=== PATIENT | male | born 1935 | race Caucasian/White ===

== ENCOUNTER 2017-11-04 11:38 | Inpatient (IN) | payer MEDICARE, OTHER ==
[2017-11-04] MEDS ORDERED: Ketorolac INJ* 30 MG/ML 1 ML VIAL IV ONE (12:28)
[2017-11-04] MEDS ORDERED: NS 0.9% 1000 ML* 1,000 ML IV ONE ×2 (12:28→18:02)
[2017-11-04 12:55] LABS: ABS Basophils 0.1 10^3/ul (0-0.2); ABS Eosinophils 0 10^3/ul (0-0.6); ABS Lymphocytes 0.8 10^3/ul (1.0-4.8); ABS Monocytes 0.6 10^3/ul (0-0.8); ABS Neutrophils 9.9 10^3/ul (1.5-7.7); ABS Nucleated RBC 0 10^3/ul; Eosinophil % 0.3 % (0-6); Hematocrit 41 % (42-52); Hemoglobin 13.6 g/dl (14.0-18.0); Lymphocyte % 7.3 % (25-47); Mean Corpuscular HGB Conc 34 g/dl (31-36); Mean Corpuscular Hemoglobin 31 pg (27-31); Mean Corpuscular Volume 93 fL (80-94); Mean Platelet Volume 8 um3 (7.4-10.4); Nucleated Red Blood Cells % 0; Platelet Count 223 10^3/ul (150-450); Red Blood Count 4.39 10^6/ul (4.0-5.4); Red Cell Distribution Width 13 % (10.5-15); White Blood Count 11.4 10^3/ul (3.5-10.8)
[2017-11-04 13:12] LABS: EGFR Non-African American 53.2 (>60)
[2017-11-04 13:24] LABS: Urine Appearance Clear; Urine Blood Negative (Negative); Urine Color Yellow; Urine Ketones Negative (Negative); Urine Protein Negative (Negative); Urine Specific Gravity 1.011 (1.010-1.030); Urine Urobilinogen Negative (Negative)
--- NOTE | 2017-11-04 13:31 | RAD ---
CLINICAL HISTORY: Left flank pain COMPARISON: July 17, 2014 TECHNIQUE: Multiple contiguous axial CT scans were obtained of the abdomen and pelvis, without intravenous contrast enhancement. Coronal and sagittal multiplanar reformations are submitted for review. Oral contrast was not administered. FINDINGS: The study is limited by the lack of intravenous contrast. This limits evaluation of the solid organs and vasculature. LUNG BASES: The lung bases are clear. LIVER: The liver is normal in shape, size, contour, and attenuation. BILE DUCTS: There is no intrahepatic or extrahepatic biliary dilatation. GALLBLADDER: The gallbladder is not visualized. Surgical clips are noted in the gallbladder fossa. PANCREAS: The pancreas is normal, without mass or ductal dilatation. SPLEEN: Normal in size and appearance. UPPER GI TRACT: Evaluation of the gastrointestinal tract is limited by incomplete gastric distention. The upper GI tract is unremarkable. SMALL BOWEL AND MESENTERY: The small bowel is normal in contour, course, and caliber. There is no obstruction or dilatation. COLON: There is extensive diverticulosis of the descending and sigmoid colon. ADRENALS: Normal bilaterally. KIDNEYS: The left kidney is edematous. There is perinephric stranding. There is pelvocaliectasis and hydroureter with a 0.3 cm calculus of the left UVJ. BLADDER: As noted above, there is a 0.3 cm calculus of the left UVJ PELVIC ORGANS: The pelvic organs are not visualized. Surgical clips are noted in the pelvis. AORTA: There is calcific atherosclerotic disease of the abdominal aorta and its branches, without aneurysmal dilatation IVC: Unremarkable LYMPH NODES: There is no lymphadenopathy by size criteria. ABDOMINAL WALL: There is a small fat-containing left inguinal hernia. There is an umbilical hernia containing a loop of small bowel without obstruction. BONES AND SOFT TISSUES: There are mild diffuse degenerative changes. OTHER: None IMPRESSION: 1. 0.3 CM CALCULUS OF THE LEFT UVJ WITH LEFT-SIDED HYDRONEPHROSIS AND PERINEPHRIC STRANDING. 2. DIVERTICULOSIS. 3. ATHEROSCLEROSIS. 4. UMBILICAL HERNIA CONTAINING LOOP OF SMALL BOWEL WITHOUT OBSTRUCTION. FAT-CONTAINING LEFT INGUINAL HERNIA.
[2017-11-04] MEDS ORDERED: Thiamine IV* 100 MG, Folic Acid IV* 1 MG, Multiple Vitamin IV ADULT* 10 ML in NS 0.9% 1... IV ONE (17:11)
[2017-11-04] MEDS ORDERED: cefTRIAXone(*) 2 GM in NS 0.9% 100 ML* 100 ML IVPB ONE (18:02)
[2017-11-04] MEDS ORDERED: Gentamicin ADULT (*) 40 MG/ML VIAL IVPB ONE (18:02)
[2017-11-04] MEDS ORDERED: cefTRIAXone(*) 2 GM ADDV.VIAL IVPB ONE (18:08)
[2017-11-04] MEDS ORDERED: Gentamicin ADULT (*) 160 MG in NS 0.9% 100 ML* 100 ML IVPB ONE (19:00)
[2017-11-04] MEDS ORDERED: Ketorolac INJ* 15 MG/ML 1 ML VIAL IV PUSH PRN (21:08)
[2017-11-04] MEDS ORDERED: Ondansetron INJ* 2 MG/ML VIAL IV PRN (21:14)
[2017-11-04] MEDS ORDERED: Acetaminophen TAB* 325 MG PO PRN (21:15)
--- NOTE | 2017-11-04 21:32 | CONS ---
UROLOGY CONSULTATION REPORT: DATE OF CONSULT: 11/04/17 REQUESTING PHYSICIAN: Dr. Zach Rivera in the emergency room. DIAGNOSES: 1. Left hydronephrosis. 2. Calculus left ureter. HISTORY OF PRESENT ILLNESS: Georges Diaz is an 82-year-old gentleman who was evaluated in the emergency room for a history of left flank pain. He had previously been treated by his primary care doctor for a urinary tract infection caused by Klebsiella and is currently on Bactrim 1 tablet twice a day. In the emergency room he has had fairly severe pain requiring multiple doses of analgesics and because of continued pain, the plan is to admit him to the hospitalist service. PAST MEDICAL HISTORY: Significant for history of thoracic ascending aortic aneurysm and history of cholecystitis in 2013. MEDICATIONS: On admission: 1. Bactrim 1 tablet twice a day. 2. Vitamin B12, 1000 mcg daily. 3. Cholecalciferol 1000 units daily. 4. Vitamin B complex 1 capsule daily. 5. Percocet 1 tablet every 6 hours p.r.n. as needed. 6. Zofran 4 mg q.6 hours p.r.n. ALLERGIES: CIPRO and SSRI's. PHYSICAL EXAM: On examination, he is a pleasant elderly gentleman. Vital Signs : Blood pressure is 149/71, pulse rate of 75 per minute, oxygen saturation 96%. Cardiovascular Exam: Regular rate and rhythm. S1 and S2. Lungs are clear bilaterally. Abdomen is soft with left flank tenderness. DIAGNOSTIC STUDIES/LAB DATA: Review of labs revealed a white count of 11.4, hemoglobin and hematocrit 13.6 and 41 with a platelet count of 223,000. Sodium is 134, potassium 4.0, BUN and creatinine are 16 and 1.29 with glucose of 111. Lactic acid is 1.4 and serum calcium is 8.7. I reviewed the CT scan done several hours ago which revealed a 3-mm calculus at the left ureterovesical junction with left hydronephrosis in addition to some other unrelated findings. The urinalysis today reveals a pH of 7.0 and is essentially unremarkable, but that is probably because he is on antibiotics currently. IMPRESSION: I had a detailed discussion with Mr. Diaz regarding the management of this small left distal ureteral calculus. The complicating factor is the associated urinary infection and I think the current management should be intravenous antibiotics, intravenous fluids, analgesics as needed, and to strain his urine. If he is unable to pass the calculus and is still requiring significant doses of analgesics in the next 24 to 48 hours, then the next step would be to consider left ureteroscopy and removal of the calculus and left stent insertion. [id number]/[facility]PS #: [id number] MTDD
[2017-11-04] MEDS ORDERED: Econazole 1% CREAM (NF) 1 TUBE TOPICAL SCH (22:00)
--- NOTE | 2017-11-04 22:49 | HP ---
ADMISSION HISTORY AND PHYSICAL: DATE OF ADMISSION: 11/04/17 UROLOGIST: Dr. Parrish. ADMITTING PHYSICIAN: Gilma Perales MD * (DICTATED BY PRIYANKA ALNDIS NP ) CHIEF COMPLAINT: Flank pain and hematuria. HISTORY OF PRESENT ILLNESS: This is a very pleasant 82-year-old gentleman who presented to the emergency department with a complaint of flank pain and repetitive nausea and vomiting at home. He said it began at approximately 9:30 this morning. Hematuria has been persistent for the past week. He said the pain was on the left in his low back and radiated around to the groin. The patient states that he has had kidney stones in the past and this felt very similar. He also had prostatectomy in the past. The patient had been placed on Bactrim by his urologist on the for Klebsiella UTI; however, this pain to him felt more than a urinary tract infection and came to the emergency department for evaluation. CAT scan was performed of the abdomen and pelvis showing a 0.3 cm calculus at the left UVJ with left-sided hydronephrosis and some perinephric stranding, diverticulosis, some atherosclerosis, and umbilical hernia containing a loop of small bowel without obstruction and a fat- containing left inguinal hernia. The patient was given aggressive fluid hydration, Zofran, and Toradol for pain and was initially going to be discharged to home; however, the patient began having intermittent colicky pain and was concerned, but with an obstructing stone he would not be able to make it through the night. Dr. Parrish was consulted who recommended the patient be kept inpatient and given more aggressive IV hydration and pain medication as needed and if the stone is still present in the morning, he would undergo cystoscopy. 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 PAST SURGICAL HISTORY: Left shoulder surgery and cataract surgery. MEDICATIONS: At home include: 1. Econazole 1% cream. 2. Bactrim 1 tab p.o. daily. 3. Vitamin B12, 1000 mcg daily. 4. Vitamin D 1000 units daily. 5. Zofran tabs 4 mg q.6 hours as needed. 6. Percocet 5/325, 1 tablet every 6 hours as needed. ALLERGIES: The patient has no known drug allergies. FAMILY HISTORY: Noncontributory. SOCIAL HISTORY: Drinks red wine a glass daily. Never smoked and never engaged in illicit drug use. REVIEW OF SYSTEMS: A 10-point review of systems is negative except as noted in the HPI. PHYSICAL EXAMINATION GENERAL: The patient is awake and alert, well nourished appearing, no acute distress. Currently, in no pain. VITAL SIGNS: Presently, blood pressure 141/63; heart rate 77; respiratory rate 14; O2 saturation 92% on room air. HEENT: The patient is atraumatic, normocephalic. PERRLA with nonicteric sclerae. Oral mucosa is moist. He has poor dentition. Front teeth are missing. NECK: Supple, nontender. No JVD noted. No carotid bruits auscultated. LUNGS: Clear bilaterally to auscultation with no wheezing, rhonchi, or rales. CARDIOVASCULAR: S1, S2 are present. No murmurs, gallops, or rubs. Rate and rhythm are regular. ABDOMEN: Soft. Some pinpoint tenderness around the mid umbilicus and just below; however, it is not radiating and not diffuse in nature. He has positive bowel sounds in all 4 quadrants. : The patient had reportedly had some hematuria. I did not witness this myself. MUSCULOSKELETAL: There is no clubbing, no cyanosis. He has trace left ankle edema which is his baseline per the patient's report. He has +2 distal pulses palpable and he is ambulatory. NEUROLOGIC: Grossly intact with no focal deficits. PSYCHIATRIC: He is cooperative and very appropriate. LABORATORY DATA: WBCs 11.4, RBCs 4.39, hemoglobin 13.6, hematocrit 46, platelets 223,000. Sodium 134, potassium 4.0, chloride 103, CO2 of 26, BUN 16, creatinine 1.29. Glucose 111, calcium 8.7. Liver function is normal. CRP is 1.78. Lipase is 26. Urinalysis is yellow, clear, pH 7.0, specific gravity 1.000. Negative for protein, ketones, blood, nitrites, bilirubin, urobilinogen , or leukocyte esterase. Negative for glucose. IMAGING: As stated above shows a 0.3 cm renal calculus. IMPRESSION: This is an 82-year-old gentleman with a kidney stone that has been difficult to pass with ongoing pain and may be going for cystoscopy with Dr. Parrish in the morning. PLAN: The patient has been admitted to medical service. He is being given IV fluid hydration, 2 L of fluid. He will be continued on maintenance IV normal saline, Zofran as needed, Toradol q.6 hours as needed for pain. He will be continued on his home regimen. He is being given ceftriaxone and gentamicin in the ER. We will continue him on ceftriaxone for the Klebsiella that was growing out on his culture from the . If there are any changes in susceptibility, antibiotics will be adjusted; however, it does appear that this bacteria is susceptible to ceftriaxone. He will be continued on that q.24 hours and we look to Dr. Parrish for any additional input on this patient's case. He is a full code. He lives at home with his , who is his healthcare proxy. She is in [place] at this time. He does have good friends at the bedside who are also aware of his situation and acting on his behalf. In the event of any serious issues, they will be able to contact his . The rest of the patient's course will be determined by further diagnostics, laboratories and any other input from other providers as warranted during this admission. MK LANDIS NP [id number]/[facility] #: [id number] ALEX
[2017-11-05] MEDS: Clotrimazole 1% CREAM* 30 GM TOPICAL SCH ×2 (03:07→08:51)
[2017-11-05] MEDS: NS 0.9% 1000 ML* 1,000 ML IV SCH ×2 (06:31→14:51)
[2017-11-05] MEDS ORDERED: Cholecalciferol TAB* 1000 UNITS PO SCH (09:00)
[2017-11-05] MEDS ORDERED: Cyanocobalamin TAB* 500 MCG PO SCH (09:00)
--- NOTE | 2017-11-05 09:56 | RAD ---
INDICATION: Assess left ureteral jet. Left UVJ calculus with hydronephrosis COMPARISON: CT November 04, 2017 TECHNIQUE: Longitudinal and transverse scans bladder were obtained. FINDINGS: Bladder: The bladder is partially distended. There are no intrinsic or extrinsic masses. The prevoid volume is 166 ml and the postvoid volume is 56 ml. The right ureteral jet is documented. There is a 5 mm calculus at the left UVJ. The left ureteral jet is not documented. Other: Prostatectomy IMPRESSION: NONVISUALIZATION OF LEFT URETERAL JET WITH 5 MM CALCULUS AT THE UVJ. MODERATE POSTVOID RESIDUAL
--- NOTE | 2017-11-05 13:32 | ED ---
Adair Beaulieu Jennifer, scribed for Zach Rivera MD on 11/04/17 at 1232 . GI/ HPI - HPI Summary HPI Summary: The patient is an 82 year old male who presents with flank pain on the lower left side that began at 09:30 and hematuria that was began 6 days ago. The patient describes that the pain originated in the left lower back and radiates down to the testicles. He rates the pain a 9-10. The patient adds that he had a prostatectomy and experiences incontinence. He has never had kidney stones before. - History of Current Complaint Chief Complaint: EDFlankPain Time Seen by Provider: 11/04/17 12:17 Stated Complaint: POSSIBLE KIDNEY STONE Hx Obtained From: Patient Onset/Duration: Started Hours Ago - This morning at 09:30 Timing: Constant Severity: Moderate Current Severity: Moderate Pain Intensity: 9 Location of Pain: LLQ, Flank Additional Locations for Males: Testicles Pain Radiates to: Flank Associated Signs and Symptoms: Positive: Hematuria, Flank Pain Aggravating Factor(s): Nothing Alleviating Factor(s): Nothing - Allergy/Home Medications Allergies/Adverse Reactions: Allergies Allergy/AdvReac Type Severity Reaction Status Date / Time ciprofloxacin Allergy Hives Verified 11/05/17 12:37 fluoxetine Allergy See Comment Verified 11/05/17 12:41 SSRIs Allergy See Comment Uncoded 11/04/17 17:42 Home Medications: Home Medications Cholecalciferol [Vitamin D] 1,000 unit PO DAILY 11/04/17 [History Confirmed 10/21] Cyanocobalamin TAB* [Vitamin B12 TAB*] 1,000 mcg PO DAILY 11/04/17 [History Confirmed 11/04/17] Econazole 1% CREAM (NF) [Econazole 1 % CREAM (NF)] 1 applic TOPICAL DAILY [History Confirmed 11/04/17] Sulfamethox/Trimethoprim DS* [Bactrim DS 800/160 TAB*] 1 tab PO BID 11/04/17 [ History Confirmed 11/04/17] Vitamin B Complex CAP* [B Complex CAP*] 1 cap PO DAILY 11/04/17 [History Confirmed 11/04/17] PMH/Surg Hx/FS Hx/Imm Hx Endocrine/Hematology History: Denies: Hx Anemia Respiratory History: Reports: Hx Asthma, Hx Sleep Apnea GI History: Reports: Other GI Disorders - (?) Acalculous Cholecystitis Denies: Hx Jaundice History: Reports: Other Problems/Disorders - Prostate Surgery, urinary incontinence Musculoskeletal History: Reports: Other Musculoskeletal History - Left shoulder repair Sensory History: Reports: Hx Cataracts - Cataract Surgery, Hx Contacts or Glasses, Hx Vision Problem - low intraocular pressure, visual disturbance, Hx Hearing Aid Opthamlomology History: Reports: Hx Cataracts - Cataract Surgery, Hx Contacts or Glasses, Hx Vision Problem - low intraocular pressure, visual disturbance Psychiatric History: Reports: Other Psychiatric Issues/Disorders - ADD - Cancer History Cancer Type, Location and Year: PROSTATE - Surgical History Surgery Procedure, Year, and Place: Prostate, Left Shoulder Repair, Cataract Hx Anesthesia Reactions: No Infectious Disease History: No Infectious Disease History: 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 Skin: The skin is warm and dry and skin color reflects adequate perfusion. HEENT: ~The head is normocephalic and atraumatic. The pupils are equal and reactive. The conjunctivae are clear and without drainage. ~Nares are patent and without drainage. ~Mouth reveals moist mucous membranes and the throat is without erythema and exudate. ~The external ears are intact. The ear canals are patent and without drainage. The tympanic membranes are intact. Neck: the neck is supple with full range of motion and non-tender. There are no carotid bruits. ~There is no neck vein distension. Respiratory: Chest is non-tender. ~Lungs are clear to auscultation and breath sounds are symmetrical and equal. Cardiovascular: Heart is regular rate and rhythm. ~There is no murmur or rub auscultated. ~~There is no peripheral edema and pulses are symmetrical and equal. Abdomen: The abdomen is soft and non-tender. ~There are normal bowel sounds heard in all four quadrants and there is no organomegaly palpated. Musculoskeletal: There is no back tenderness noted. ~Extremities are non-tender with full range of motion. ~There is good capillary refill. ~There is no peripheral edema or calf tenderness elicited. Neurological: Patient is alert and oriented to person, place and time. ~The patient has symmetrical motor strength in all four extremities. ~Cranial nerves are grossly intact. Deep tendon reflexes are symmetrical and equal in all four extremities. Psychiatric: The patient has an appropriate affect and does not exhibit any anxiety or depression. Triage Information Reviewed: Yes Vital Signs On Initial Exam: Initial Vitals Temp Pulse Resp BP Pulse Ox 97.9 F 80 22 163/96 98 11/04/17 11:42 11/04/17 11:42 11/04/17 11:42 11/04/17 11:42 11/04/17 11:42 Vital Signs Reviewed: Yes Diagnostics - Vital Signs Vital Signs Temp Pulse Resp BP Pulse Ox 11/04/17 12:20 75 13 95 11/04/17 11:42 97.9 F 80 22 163/96 98 - Laboratory Lab Results: Lab Results 11/04/17 11/04/17 11/04/17 Range/Units 12:44 12:44 12:44 WBC 11.4 H (3.5-10.8) 10^3/ul RBC 4.39 (4.0-5.4) 10^6/ul Hgb 13.6 L (14.0-18.0) g/dl Hct 41 L (42-52) % MCV 93 (80-94) fL MCH 31 (27-31) pg MCHC 34 (31-36) g/dl RDW 13 (10.5-15) % Plt Count 223 (150-450) 10^3/ul MPV 8 (7.4-10.4) um3 Neut % (Auto) 86.5 H (38-83) % Lymph % (Auto) 7.3 L (25-47) % [place] % (Auto) 5.4 (1-9) % Eos % (Auto) 0.3 (0-6) % Baso % (Auto) 0.5 (0-2) % Absolute Neuts (auto) 9.9 H (1.5-7.7) 10^3/ul Absolute Lymphs (auto) 0.8 L (1.0-4.8) 10^3/ul Absolute Monos (auto) 0.6 (0-0.8) 10^3/ul Absolute Eos (auto) 0 (0-0.6) 10^3/ul Absolute Basos (auto) 0.1 (0-0.2) 10^3/ul Absolute Nucleated RBC 0 10^3/ul Nucleated RBC % 0 Sodium 134 (133-145) mmol/L Potassium 4.0 (3.5-5.0) mmol/L Chloride 103 (101-111) mmol/L Carbon Dioxide 26 (22-32) mmol/L Anion Gap 5 (2-11) mmol/L BUN 16 (6-24) mg/dL Creatinine 1.29 H (0.67-1.17) mg/dL Est GFR ( Amer) 68.4 (>60) Est GFR (Non-Af Amer) 53.2 (>60) BUN/Creatinine Ratio 12.4 (8-20) Glucose 111 H (70-100) mg/dL Lactic Acid 1.4 (0.5-2.0) mmol/L Calcium 8.7 (8.6-10.3) mg/dL Total Bilirubin 0.60 (0.2-1.0) mg/dL AST 20 (13-39) U/L ALT 14 (7-52) U/L Alkaline Phosphatase 78 (34-104) U/L C-Reactive Protein 1.78 (< 5.00) mg/L Total Protein 6.9 (6.4-8.9) g/dL Albumin 3.8 (3.2-5.2) g/dL Globulin 3.1 (2-4) g/dL Albumin/Globulin Ratio 1.2 (1-3) Lipase 26 (11.0-82.0) U/L Urine Color Urine Appearance Urine pH (5-9) Ur Specific [place] (1.010-1.030) Urine Protein (Negative) Urine Ketones (Negative) Urine Blood (Negative) Urine Nitrate (Negative) Urine Bilirubin (Negative) Urine Urobilinogen (Negative) Ur Leukocyte Esterase (Negative) Urine Glucose (Negative) Urine Ascorbic Acid (Negative) 11/04/17 Range/Units 13:09 WBC (3.5-10.8) 10^3/ul RBC (4.0-5.4) 10^6/ul Hgb (14.0-18.0) g/dl Hct (42-52) % MCV (80-94) fL MCH (27-31) pg MCHC (31-36) g/dl RDW (10.5-15) % Plt Count (150-450) 10^3/ul MPV (7.4-10.4) um3 Neut % (Auto) (38-83) % Lymph % (Auto) (25-47) % [place] % (Auto) (1-9) % Eos % (Auto) (0-6) % Baso % (Auto) (0-2) % Absolute Neuts (auto) (1.5-7.7) 10^3/ul Absolute Lymphs (auto) (1.0-4.8) 10^3/ul Absolute Monos (auto) (0-0.8) 10^3/ul Absolute Eos (auto) (0-0.6) 10^3/ul Absolute Basos (auto) (0-0.2) 10^3/ul Absolute Nucleated RBC 10^3/ul Nucleated RBC % Sodium (133-145) mmol/L Potassium (3.5-5.0) mmol/L Chloride (101-111) mmol/L Carbon Dioxide (22-32) mmol/L Anion Gap (2-11) mmol/L BUN (6-24) mg/dL Creatinine (0.67-1.17) mg/dL Est GFR ( Amer) (>60) Est GFR (Non-Af Amer) (>60) BUN/Creatinine Ratio (8-20) Glucose (70-100) mg/dL Lactic Acid (0.5-2.0) mmol/L Calcium (8.6-10.3) mg/dL Total Bilirubin (0.2-1.0) mg/dL AST (13-39) U/L ALT (7-52) U/L Alkaline Phosphatase (34-104) U/L C-Reactive Protein (< 5.00) mg/L Total Protein (6.4-8.9) g/dL Albumin (3.2-5.2) g/dL Globulin (2-4) g/dL Albumin/Globulin Ratio (1-3) Lipase (11.0-82.0) U/L Urine Color Yellow Urine Appearance Clear Urine pH 7.0 (5-9) Ur Specific [place] 1.011 (1.010-1.030) Urine Protein Negative (Negative) Urine Ketones Negative (Negative) Urine Blood Negative (Negative) Urine Nitrate Negative (Negative) Urine Bilirubin Negative (Negative) Urine Urobilinogen Negative (Negative) Ur Leukocyte Esterase Negative (Negative) Urine Glucose Negative (Negative) Urine Ascorbic Acid * H (Negative) Result Diagrams: 11/04/17 12:44 11/04/17 12:44 Lab Statement: Any lab studies that have been ordered have been reviewed, and results considered in the medical decision making process. - CT CT Abd/Pel CT Interpretation: Positive (See Comments) - 1. 0.3 CM CALCULUS OF THE LEFT UVJ WITH LEFT-SIDED HYDRONEPHROSIS AND PERINEPHRIC STRANDING. 2. DIVERTICULOSIS. 3. ATHEROSCLEROSIS. 4. UMBILICAL HERNIA CONTAINING LOOP OF SMALL BOWEL WITHOUT OBSTRUCTION. FAT-CONTAINING LEFT INGUINAL HERNIA. Dr. Rivera has reviewed this report. CT Interpretation Completed By: Radiologist MATT Course/Dx - Course Course Of Treatment: Ignacia Diaz presented with a couple days of left flank pain. He was found to have a 3 mm left UVJ stone with moderate hydronephrosis. He had called his PMD a few days ago and got started on Bactrim for a presumed UTI and his U/A did grow out Kelbsiella. He is not febrile, his labs are WNL and his U/A is negative today. He continued to have significant pain and weakness and ultimately was admitted to the hospitlalist service with Dr Parrish consulting. - Diagnoses Provider Diagnoses: Kidney stones - Physician Notifications Discussed Care Of Patient With: Gilma Perales Time Discussed With Above Provider: 17:48 Instructed by Provider To: Other - Consulted Dr. Perales who accepts the pt for admisison. Discharge - Discharge Plan Condition: Stable Disposition: ADMITTED TO [facility] The documentation as recorded by the Adair su Jennifer accurately reflects the service I personally performed and the decisions made by me, Zach Rivera MD.
[2017-11-05 17:11] VITALS: BP 144/71
[2017-11-05] MEDS ORDERED: cefTRIAXone(*) 1 GM in NS 0.9% 50 ML* 50 ML IVPB SCH (18:00)
--- NOTE | 2017-11-05 18:17 | RAD ---
INDICATION: Reevaluate for left ureteral jet COMPARISON: Same day bladder ultrasound TECHNIQUE: Real time ultrasound images of the urinary bladder were acquired with foster scale and Doppler color flow imaging. FINDINGS: Ureteral jets are identified bilaterally. IMPRESSION: Positive ureteral jets bilaterally.
== END 2017-11-05 19:30 | disposition home or self-care (01) | DRG 694 ==
LOC: ED 11:38 → MED 21:28 → OBSVTOIN 11-05 09:30
PROVIDERS: ADMIT Internal Medicine; ATTEND Internal Medicine
DX: N13.2 Hydronephrosis with renal and ureteral calculous obstruction (principal); N39.0 Urinary tract infection, site not specified; B96.1 Klebsiella pneumoniae [K. pneumoniae] as the cause of diseases classified elsewhere; R31.9 Hematuria, unspecified; N39.498 Other specified urinary incontinence; N48.1 Balanitis; Z79.899 Other long term (current) drug therapy
CPT/HCPCS: 36415; 74176; 76857; 80053; 81003; 83605; 83690; 85025; 86140; 96374; 99284; A9270-GY; J0696; J1580; J1885

== ENCOUNTER 2017-11-09 15:03 | Day surgery (SDC) | payer MEDICARE, OTHER ==
[2017-11-09] MEDS ORDERED: cefTRIAXone(*) 2 GM ADDV.VIAL IVPB ONE (15:28)
[2017-11-09] MEDS ORDERED: Gentamicin ADULT (*) 160 MG in NS 0.9% 100 ML* 100 ML IVPB ONE (16:00)
[2017-11-09] MEDS ORDERED: Iohexol 180 (CONTRAST) 10 ML SDV IV ONE (16:10)
[2017-11-09] MEDS ORDERED: Propofol* 10 MG/ML 20 ML BTL IV PUSH ONE (17:26)
[2017-11-09] MEDS ORDERED: Lidocaine 2% PF * 5 ML VIAL ONE (17:28)
[2017-11-09] MEDS ORDERED: fentaNYL* 50 MCG/ML 2 ML VIAL (100 MCG VIAL) ONE (17:33)
[2017-11-09 19:20] VITALS: BP 140/72
--- NOTE | 2017-11-09 19:25 | RAD ---
INDICATION: Left ureteral calculi COMPARISONS: CT dated November 04, 2018 TECHNIQUE: Fluoroscopy was provided for a retrograde pyelogram and stent placement. Total fluoroscopy time is: 9 seconds FINDINGS: Spot images demonstrate contrast within the renal collecting system. A ureteral stent is noted IMPRESSION: FLUOROSCOPY WAS PROVIDED FOR A RETROGRADE PYELOGRAM AND STENT PLACEMENT CPT II Codes: 6045F
--- NOTE | 2017-11-10 01:33 | OP ---
CC: Bernardo Lemon MD * DATE OF OPERATION: 11/09/17 - SDS DATE OF : 33 SURGEON: Ger Parrish MD ANESTHESIOLOGIST: Dr. Bajwa. ANESTHESIA: General. PRE-OP DIAGNOSES: 1. Calculus left ureter. 2. Left hydronephrosis. POST-OP DIAGNOSES: 1. Calculus left ureter. 2. Left hydronephrosis. OPERATIVE PROCEDURE: Cystoscopy, left retrograde pyelogram, left ureteroscopy and stone extraction, and left stent insertion. COMPLICATIONS: None. STENT USED: A 6-Swedish stent, left ureter. POSTOPERATIVE CONDITION: Stable. OPERATIVE FINDINGS: A 3 to 4 mm calculus obstructing left distal ureter. INDICATIONS: Georges Diaz is an 82-year-old gentleman who had initially been evaluated last week for calculus in the left distal ureter. His symptoms had resolved and a followup ultrasound had revealed evidence that the stone may have passed and he was discharged. He then developed recurrent pain last night and a followup ultrasound in my office earlier today revealed a complete obstruction of the left ureter secondary to the calculus in the left distal ureter. DESCRIPTION OF PROCEDURE: After induction of general anesthesia, the patient was placed in dorsal lithotomy position. Sequential compression devices were in place and functioning. Initial examination revealed a moderate degree of phimosis, the urethra was unremarkable. The patient is status post radical prostatectomy. The bladder was examined. Just inside the bladder neck, there was adhesive band running from one lateral aspect of the bladder neck to the other. This is sometimes seen after radical prostatectomy due to the way the anastomosis was done. The remainder of the bladder was unremarkable. A guidewire was introduced into the left ureter. Retrograde pyelogram revealed fullness of the left collecting system. A 6-Swedish semi-rigid ureteroscope was introduced and advanced under direct vision. In the distal ureter, a 3 to 4 mm calculus was noted with some surrounding edema and inflammation. Using a three- pronged grasper, this was engaged and removed and sent for analysis. No additional stones were noted and a 6-Swedish stent was introduced and positioned under fluoroscopy with good proximal and distal positioning obtained. The bladder was emptied. The patient tolerated the procedure satisfactorily and was transferred back to the recovery area in stable condition. [id number] #: [id number] [facility]
== END 2017-11-09 19:35 | disposition home or self-care (01) ==
LOC: OR 15:03
PROVIDERS: ATTEND Urology
DX: N13.2 Hydronephrosis with renal and ureteral calculous obstruction (principal); R31.9 Hematuria, unspecified; I44.7 Left bundle-branch block, unspecified; J45.909 Unspecified asthma, uncomplicated; G47.33 Obstructive sleep apnea (adult) (pediatric)
CPT/HCPCS: 74420; 82365; 88300; C1876; J0696; J1580; J2704; J3010

== ENCOUNTER 2019-12-13 15:59 | Emergency (ER) | payer MEDICARE, OTHER ==
--- NOTE | 2019-12-13 16:42 | ED ---
Adult Trauma - HPI Summary HPI Summary: The patient is an 84-year-old male arriving via ambulance to [facility] accompanied by with a chief complaint of traumatic fall about an hour ago. He reports that he had turned too fast while ambulating and fell, causing him to land on the right side. He is now experiencing pain in the right hip and thigh. He did not hit his head or neck. He denies any back pain. He was unable to get up without aid. He cannot ambulate on the right lower extremity. Pain is rated 3/10 in severity while at rest. The pain is rated 10/10 in severity with movement. No blood thinners. Past medical history includes cholecystectomy, asthma, sleep apnea, kidney stones, prostate surgery, hepatitis A. Nonsmoker, no alcohol use, no substance use. Medications reviewed. Allergies noted. - History of Current Complaint Chief Complaint: EDFall Stated Complaint: FALL RT HIP PAIN PER EMS Time Seen by Provider: 12/13/19 16:29 Hx Obtained From: Patient Mechanism of Injury: Fall Ambulatory at the Scene: No Loss of Consciousness: no loss of consciousness Onset/Duration: Started Minutes Ago, Still Present Onset of Pain: Immediate Onset Severity: Severe Current Severity: Mild Pain Intensity: 3 Pain Scale Used: 0-10 Numeric Location: Extremities - right hip Aggravating Factor(s): Movement Alleviating Factor(s): Rest - Additional Pertinent History Primary Care Physician: DESTINEY - Allergy/Home Medications Allergies/Adverse Reactions: Allergies Allergy/AdvReac Type Severity Reaction Status Date / Time ciprofloxacin Allergy Hives Verified 12/13/19 16:13 fluoxetine Allergy See Comment Verified 12/13/19 16:13 SSRIs Allergy See Comment Uncoded 11/04/17 17:42 Home Medications: Home Medications NK [No Home Medications Reported] 12/13/19 [History Confirmed 12/13/19] PMH/Surg Hx/FS Hx/Imm Hx Endocrine/Hematology History: Denies: Hx Anemia Cardiovascular History: Denies: Hx Hypercholesterolemia, Hx Hypertension Respiratory History: Reports: Hx Asthma, Hx Sleep Apnea GI History: Reports: Other GI Disorders - (?) Acalculous Cholecystitis Denies: Hx Jaundice History: Reports: Hx Kidney Stones, Other Problems/Disorders - Prostate Surgery, urinary incontinence Musculoskeletal History: Reports: Other Musculoskeletal History - Left shoulder repair Sensory History: Reports: Hx Cataracts - Cataract Surgery, Hx Contacts or Glasses, Hx Vision Problem - low intraocular pressure, visual disturbance, Hx Hearing Aid Opthamlomology History: Reports: Hx Cataracts - Cataract Surgery, Hx Contacts or Glasses, Hx Vision Problem - low intraocular pressure, visual disturbance Psychiatric History: Reports: Other Psychiatric Issues/Disorders - ADD - Cancer History Cancer Type, Location and Year: PROSTATE - Surgical History Surgery Procedure, Year, and Place: Prostate, Left Shoulder Repair, Cataract, cholecystectomy Hx Anesthesia Reactions: No Infectious Disease History: No Infectious Disease History: Reports: Hx Hepatitis - type A 1979 Denies: Traveled Outside the [place] in Last 30 Days - Family History Known Family History: Negative: Diabetes - Social History Alcohol Use: None Alcohol Amount: glass wine daily Hx Substance Use: No Substance Use Type: Reports: None Hx Tobacco Use: No Smoking Status (MU): Never Smoked Tobacco Have You Smoked in the Last Year: No Review of Systems Positive: Arthralgia - right hip, Decreased ROM - right hip secondary to pain. Negative: Other - back pain, neck pain Neurological/Mental Status: Other - Negative: head injury All Other Systems Reviewed And Are Negative: Yes Physical Exam - Summary Physical Exam Summary: VITAL SIGNS: Reviewed. GENERAL: Patient is a well-developed and nourished male who is lying comfortable in the stretcher. Patient is not in any acute respiratory distress. HEAD AND FACE: No signs of trauma. No ecchymosis, hematomas or skull depressions. No sinus tenderness. EYES: PERRLA, EOMI x 2, No injected conjunctiva, no nystagmus. EARS: Hearing grossly intact. Ear canals and tympanic membranes are within normal limits. MOUTH: Oropharynx within normal limits. NECK: Supple, trachea is midline, no adenopathy, no JVD, no carotid bruit, no c- spine tenderness, neck with full ROM. CHEST: Symmetric, no tenderness at palpation. LUNGS: Clear to auscultation bilaterally. No wheezing or crackles. CVS: Regular rate and rhythm, S1 and S2 present, no murmurs or gallops appreciated. ABDOMEN: Soft, non-tender. No signs of distention. No rebound, no guarding, and no masses palpated. Bowel sounds are normal. EXTREMITIES: Right lower extremity is externally rotate and shortened, Decreased ROM secondary to pain. FROM in all other major joints, no edema, no cyanosis or clubbing. NEURO: Alert and oriented x 3. No acute neurological deficits. Speech is normal and follows commands. SKIN: Dry and warm. GCS: 15. Triage Information Reviewed: Yes Vital Signs On Initial Exam: Initial Vitals Temp Pulse Resp BP Pulse Ox 97.4 F 81 20 189/104 97 12/13/19 16:08 12/13/19 16:08 12/13/19 16:08 12/13/19 16:08 12/13/19 16:08 Vital Signs Reviewed: Yes Procedures - Sedation Patient Received Moderate/Deep Sedation with Procedure: No Diagnostics - Vital Signs Vital Signs Temp Pulse Resp BP Pulse Ox 12/13/19 16:08 97.4 F 81 20 189/104 97 - Laboratory Result Diagrams: 12/13/19 21:07 12/13/19 17:03 Lab Statement: Any lab studies that have been ordered have been reviewed, and results considered in the medical decision making process. - Radiology Chest XR Radiology Interpretation Completed By: Radiologist Summary of Radiographic Findings: Impression: No radiographic evidence for acute cardiopulmonary abnormality on this portable chest x-ray. Dr. Rodriguez has reviewed this report. Hip/Pelvis XR Radiology Interpretation Completed By: Radiologist Summary of Radiographic Findings: Impression: Fracture through the right femoral neck with ferrous angulation deformity. Dr. Rodriguez has reviewed this report. - CT Brain CT CT Interpretation Completed By: Radiologist Summary of CT Findings: Impression: 1. No acute intracranial abnormality. Mila Stroke Program Early CT Score (ASPECTS) = 10. 2. Age-related atrophy and mild chronic small vessel ischemic disease. Dr. Rodriguez has reviewed this report. - EKG 2101 Cardiac Rate: NL - 88 BPM EKG Rhythm: Sinus Rhythm EKG Comparison: No Significant Change - Similar to 07/17/2014 Summary of EKG Findings: An EKG at 2101 reveals normal sinus rhythm at rate of 88 BPM, LBBB. No ST elevations. Similar to previous taken on 07/17/2014. Dr. Rodriguez has reviewed and interpreted this EKG. Re-Evaluation - Re-Evaluation First Eval Re-Evaluation Time: 19:20 Comment: We discussed all results and plan for admission. Patient agreeable with plan. Second Eval Re-Evaluation Time: 20:32 Comment: Patient unable to state name and without an issue when nurse administering Tylenol, change from baseline. Patient being evaluated by admitting provider, Geovani Tan, and states sensation of feeling different than he had felt before 20:20. ED provider in room at 2031. NIH at 2035 (see scale). Eder colindres called at 2037. Patient to CT. Geovani will speak with Dr. Dawson to update him on the patient's status. Adult Trauma Course/Dx - Course Assessment/Plan: The patient is an 84-year-old male arriving via ambulance to [facility] accompanied by with a chief complaint of traumatic fall about an hour ago. He reports that he had turned too fast while ambulating and fell, causing him to land on the right side. He is now experiencing pain in the right hip and thigh. He did not hit his head or neck. He denies any back pain. He was unable to get up without aid. He cannot ambulate on the right lower extremity. Pain is rated 3/10 in severity while at rest. The pain is rated 10/10 in severity with movement. No blood thinners. Past medical history includes cholecystectomy, asthma, sleep apnea, kidney stones, prostate surgery, hepatitis A. Nonsmoker, no alcohol use, no substance use. Medications reviewed. Allergies noted. In the ED course the patient was placed on a oracle fusion middleware architect, IV access was obtained. Past medical records reviewed. Blood test w/o a significant abnormality except for glucose of 105. Urinalysis negative for UTI. Hip x ray Impression: Fracture through the right femoral neck with ferrous angulation deformity. CXR Impression: No radiographic evidence for acute cardiopulmonary abnormality on this portable chest x-ray. I discussed the case with Dr. Dawson from orthopedics, and he will consult for this patient. I also discussed the case with Geovani Tan, physician commercial real estate assistant working with Dr. Monreal, from the hospital services, who accepted the patient for admission. Before the patient was transferred to the floor after the patient was admitted by Geovani Tan. the patient requested Tylenol for pain. At 20:20 the nurse was giving him the Tylenol, and she noticed that the patient became slightly confused. She called Geovani Tan, and he noticed that the patient had a dysmetria in the right hand and the partial loss of vision in the right eye. I went to assess the patient, and I confirmed that patient has the above symptoms. The patient himself reports that he noticed abnormal feeling in the right hand and loss of vision in the right eye. Eder colindres was called at that time. The patient went to get a head CT. Head CT shows no acute interval cardiac pathology. I discussed the case with Dr. Jacobs from [facility] and he recommends not TPA since the NIH score is only equal to 2. He recommended for the patient to get an MRI of the brain but noncontrast, CTA of the head and neck, and echocardiogram, aspirin 325 and atorvastatin 40 mg. Patient is getting the MRI and the CTA. The patient is awaiting for results. The patient will be signed out to Dr. Arciniega at shift change. The patient is hemodynamically stable. - Diagnoses Provider Diagnoses: Femoral neck fracture During the Visit The Following Alert/Code Occurred: Eder Trevizo - called at 20:38 - Physician Notifications Discussed Care Of Patient With: Enrico Dawson - orthopedics Time Discussed With Above Provider: 19:10 Instructed by Provider To: Other - I discussed the patients case with Dr. Dawson, who tu consult for the patient. Dr. Monreal from hospitalist services, accepts the patient for admission. I was approached by Geovani Tan [[id number]] who had been assessing the patient for admission secondary to an episode of dysmetria that occurred at 20:20. When Geovani was examining the patient, there was a partial field cut in the right lower quadrant of the right eye. I spoke with Julianna at transfer center at 2055. I spoke with Dr. Jacobs from [facility] [[id number]]. He states that the NIH, which is equal to 2, is too low for TPA. However, he recommends brain MRI, head/neck CTA, and echocardiogram. He wants the patient to follow with Dr. Tobar. He will review the MRI and CTA when resulted. Dr. Dawson has evaluated the patients case and determined that if the patient has to be placed on antiplatelets other than Aspirin, then it would be better for the patient to be transferred for his hip fracture rather than be admitted here for management [2141]. Discharge ED - Sign-Out/Discharge Documenting (check all that apply): Sign-Out Patient Signing out patient TO: Zach Arciniega - Patient is a sign-out to Dr. Zach Arciniega MD, at 2200 on 12/13/2019, pending Brain MRI, Head/Neck CTA, and disposition. - Discharge Plan Condition: Stable Referrals: Bernardo Lemon MD [Primary Care Provider] - - Billing Disposition and Condition Condition: STABLE - Attestation Statements Document Initiated by Betsyibe: Yes Documenting Scribe: Shavonne Case Provider For Whom Areli is Documenting (Include Credential): Dr. Jabier Rodriguez MD Scribe Attestation: IShavonne, scribed for Dr. Jabier Rodriguez MD on 12/13/19 at 2203. Scribe Documentation Reviewed: Yes Provider Attestation: The documentation as recorded by the betsyibe, Shavonne Case accurately reflects the service I personally performed and the decisions made by me, Dr. 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: Partial Hemianopia Facial Paresis-Pt to Smile & Close Eyes or Grimace Symmetry: Normal/Symmetrical Motor Function - Right Arm: No Drift-Holds 10 Seconds Motor Function - Left Arm: No Drift-Holds 10 Seconds Motor Function - Right Leg: No Drift-Holds 10 Seconds Motor Function - Left Leg: No Drift-Holds 10 Seconds Limb Ataxia-Must be out of Proportion to Weakness Present: Present in One Limb Sensory (Use Pinprick to Test Arms/Legs/Trunk/Face): Normal Best Language (Describe Picture, Name Items): No Aphasia Dysarthria (Read Several Words): Normal Extinction and Inattention: No Abnormality Total Score: 2 NIH Stroke Scale Comment: done at 20:36
[2019-12-13 17:24] LABS: ABS Eosinophils 0.1 10^3/ul (0-0.6); ABS Lymphocytes 0.8 10^3/ul (1.0-4.8); ABS Monocytes 0.4 10^3/ul (0-0.8); ABS Neutrophils 9.2 10^3/ul (1.5-7.7); Eosinophil % 0.5 %; Hematocrit 42 % (42-52); Hemoglobin 14.1 g/dL (14.0-18.0); Lymphocyte % 7.6 %; Mean Corpuscular HGB Conc 34 g/dL (31-36); Mean Corpuscular Hemoglobin 32 pg (27-31); Mean Corpuscular Volume 94 fL (80-94); Mean Platelet Volume 8.5 fL (7.4-10.4); Platelet Count 240 10^3/uL (150-450); Red Cell Distribution Width 13 % (10-15); White Blood Count 10.4 10^3/uL (3.5-10.8)
[2019-12-13 17:45] LABS: Albumin 4.1 g/dL (3.2-5.2); Albumin/Globulin Ratio 1.3 (1-3); BUN/Creatinine Ratio 21.5 (8-20); C Reactive Protein 1.93 mg/L (<8.01); Calcium 9.3 mg/dL (8.6-10.3); EGFR African American 112.8 (>60); EGFR Non-African American 93.2 (>60); Globulin 3.2 g/dL (2-4); Potassium 3.6 mmol/L (3.5-5.0); Total Bilirubin 0.7 mg/dL (0.2-1.0); Total Protein 7.3 g/dL (6.4-8.9)
[2019-12-13 18:01] LABS: Urine Appearance Clear; Urine Bacteria Absent (Absent); Urine Bilirubin Negative (Negative); Urine Blood 1+ (Negative); Urine Color Straw; Urine Glucose Negative (Negative); Urine Ketones Negative (Negative); Urine Nitrite Negative (Negative); Urine Protein Negative (Negative); Urine Red Blood Cell Trace(0-2/hpf) (Absent); Urine Squamous Epithelial Cell Present (Absent); Urine Urobilinogen Negative (Negative); Urine White Blood Cell Absent (Absent)
[2019-12-13] MEDS ORDERED: Acetaminophen TAB* 325 MG PO ONE (19:38)
[2019-12-13] MEDS ORDERED: Acetaminophen TAB* 325 MG PO PRN (20:14)
[2019-12-13] MEDS ORDERED: HYDROcodone/ACETAMIN 5-325 MG* 1 TAB PO PRN (20:14)
[2019-12-13] MEDS ORDERED: NS 0.9% 1000 ML** 1,000 ML IV SCH (20:15)
[2019-12-13] MEDS ORDERED: NS 0.9% 1000 ML** 1,000 ML IV ONE (20:45)
[2019-12-13 20:46] LABS: Activated Partial Thrombo Time 31.7 seconds (26.0-38.0); INR 1.14 (0.82-1.09)
[2019-12-13] MEDS ORDERED: Atorvastatin* 40 MG TAB PO ONE (21:15)
[2019-12-13] MEDS ORDERED: Aspirin TAB* 325 MG PO ONE (21:15)
[2019-12-13] MEDS ORDERED: Aspirin 81 mg CHEW TAB* 81 MG TAB.CHEW PO ONE (21:17)
[2019-12-13 21:20] LABS: Mean Platelet Volume 8.4 fL (7.4-10.4); Platelet Count 243 10^3/uL (150-450)
[2019-12-13] MEDS ORDERED: Iohexol 350* (CONTRAST) 500 ML MDV IV ONE (21:23)
[2019-12-13] MEDS ORDERED: Morphine 4 MG/ML VIAL (1 ml) 4 MG/ML VIAL IV ONE (21:28)
[2019-12-13] MEDS ORDERED: Aspirin 81 mg CHEW TAB* 81 MG TAB.CHEW ONE (21:31)
[2019-12-13] MEDS: Ondansetron INJ* 2 MG/ML VIAL IV PRN (21:34)
[2019-12-13 21:35] LABS: HDL Cholesterol 56.2 mg/dL
[2019-12-13 21:37] LABS: Troponin I 0.02 ng/mL (<0.03)
[2019-12-13] MEDS ORDERED: Heparin VIAL(*) 5000 UNITS/ML VIAL (FIVE THOUSAND) SUBCUT SCH (22:00)
--- NOTE | 2019-12-13 22:16 | ED ---
Progress - Progress Note Progress Note: 84 y/o M signed out from Dr. Jabier Rodriguez upon shift change 12/13/2019 2200. Pending Brain MRI, Head/Neck CTA, and disposition. Brain MRI shows, per radiologist: 1. 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 2. Age-related atrophy and mild to moderate chronic small vessel ischemic disease. Head/Neck CTA shows, per radiologist: 1. Normal head CTA. 2. Age-related atrophy and mild chronic small vessel ischemic disease. ED physician has reviewed these imaging reports. Re-Evaluation - Re-Evaluation First Eval Re-Evaluation Time: 22:26 Comment: [facility] radiologist called to report imaging findings Second Eval Re-Evaluation Time: 23:58 Comment: hospitalist and orthopedics recommend transfer to tertiary care center Third Eval Re-Evaluation Time: 00:34 Comment: report given to neurology attending at [facility]. they do not have beds Fourth Eval Re-Evaluation Time: 00:50 Comment: report given to [facility] Charles. they will call back with the hospitalist Fifth Eval Re-Evaluation Time: 01:05 Comment: report given to Dr. Lema, hospitalist at [facility]. they accept the patient. they will call back with bed assignment Course/Dx - Diagnoses Provider Diagnoses: Hip fracture, CVA (cerebral vascular accident) Discharge ED - Sign-Out/Discharge Documenting (check all that apply): Patient Departure - Discharge Plan Condition: Stable Disposition: TRANS HIGHER LVL OF CARE FAC Referrals: Bernardo Lemon MD [Primary Care Provider] - - Billing Disposition and Condition Condition: STABLE Disposition: Trans Higher Lvl of Care Fac - Attestation Statements Document Initiated by Betsyibe: Yes Documenting Scribe: Nikki Cervantes Provider For Whom Areli is Documenting (Include Credential): Zach Arciniega MD Scribe Attestation: Nikki Beaulieu, scribed for Zach Arciniega MD on 12/14/19 at 0209. Scribe Documentation Reviewed: Yes Provider Attestation: The documentation as recorded by the Nikki su accurately reflects the service I personally performed and the decisions made by me, Zach Arciniega MD Status of Scribe Document: Viewed
--- NOTE | 2019-12-13 23:14 | CONS ---
CONSULTATION REPORT: DATE OF CONSULT: 12/13/19 - EMERGENCY DEPT LOCATION: Emergency room at [facility]. 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 He fell and he injured his right hip. There is no direct evidence of any head trauma. He also denies recent similar episodes. He was transferred to the emergency room here at the hospital with complaint of right hip pain and radiographs eventually revealed a displaced femoral neck fracture right side. There is no other evidence of any bony injury to the pelvis or thigh area. He has intact sensation and strength around the foot and toe area of the right side. He is 84 years of age, he has a and a son. He describes some advanced illness in the son, but only the is in reasonable health. He himself is in reasonable health as well. Medications are outlined in the chart. There does not appear to be any pressing or acute cofactor of illness in his present situation. During his stay though in the emergency room, he has developed some focal neurological findings which may indicate some intracranial process, possibly a minor stroke and he is currently being worked up with MRI and CTA of the cerebral vasculature and the carotids. I have interviewed Professor Diaz in the bed. He is an alert and very bright gentleman, appears to be in good shape for an 84-year- old, but his right lower extremity is flexed and externally rotated. He has significant pain at the groin with any range of motion. He is aware of his situation it appears and the need for medical workup, although he does mention to us that he is 84, and that he feels if he were to in the near future that he would accept his fate and we have tried to reassure him that given successful hip surgery, he could return most likely to a reasonable quality of life. So, the main question now is what is going on with his neurological status, this will become hopefully more clear over the next couple of hours. It is my opinion that if he is going to need significant anticoagulation, he best be transferred, as a [place] setting may be able to orchestrate a hemiarthroplasty in the face of aggressive anticoagulation better than we could here at the [facility]. [id number] #: [id number] [facility]
[2019-12-14 02:08] VITALS: BP 127/73
[2019-12-14] MEDS ORDERED: Morphine 4 MG/ML VIAL (1 ml) 4 MG/ML VIAL IV ONE (02:45)
[2019-12-14] MEDS: Ondansetron INJ* 2 MG/ML VIAL IV PRN (02:49)
--- NOTE | 2019-12-14 03:16 | CONS ---
CC: Dr. Lemon; Dr. Dawson; Dr. Monreal * CONSULTATION REPORT: DATE OF CONSULT: 12/14/19 - EMERGENCY DEPT REQUESTING PHYSICIAN IN CONSULT: Dr. Rodriguez. PRIMARY CARE PROVIDER: Dr. Lemon. CONSULTING ORTHOPEDIST: Dr. Dawson. REASON FOR CONSULTATION: Evaluation for admission. HISTORY OF PRESENT ILLNESS: Mr. Georges Diaz is an 84-year-old male patient who previously tells he has history of nephrolithiasis, gallstones, history of prostate cancer status post prostatectomy and a history of chronic urinary incontinence secondary to that and chronic balanitis, who came in today. He states that this afternoon, he was turning in his bedroom to go to look out his window. He believes his feet crossed, he tripped and he fell, landed on his right hip. He tried for about 30 minutes to get up on to his bed. He was actually able to get on to his bed and he was able to get to his phone and call 911. He thinks that he may have been on the floor in his bed for about an hour. He denied loss of consciousness. He denied having any dizziness. Denied any slurred speech, double vision. No weakness to one side. He was obviously concerned because he cannot stand, he was in a significant amount of pain, and he came to the hospital. We were initially asked to evaluate the patient for consult in admission due to a hip fracture; however, when I saw the patient, I was placing my orders in the computer. The nurse had come out to me and said that he in the ER was having some issues with getting his pills, he was missing his mouth with his hand. He did not know he date and there was concern, so the nurse immediately grabbed me and I went to see the patient again after I had just seen him approximately 10 minutes prior and ultimately it was found that he did have a visual field cut and had some dysmetria to the right arm, so a code foster was called by Dr. Rodriguez. At that point, I asked to Dr. Rodriguez that we would not accept admission until we work this up further and the care of the patient was transferred back to the ER given the acute change. Further recommendations were pending on workup. So again at that point, I recommended care was transferred back to the ER for further workup. PAST MEDICAL HISTORY: Significant for: 1. Chronic balanitis. 2. Prostate cancer. 3. Kidney stones. 4. Gallstones. PAST SURGICAL HISTORY: 1. He has had prostatectomy. 2. Left shoulder surgery. 3. Cataract surgery. MEDICATIONS: Home medications are denied. ALLERGIES TO MEDICATIONS: Include CIPRO. He also does have an allergy to FLUOXETINE and SSRIs. FAMILY HISTORY: His mother at 96 of old age. Father had a history of AAA. SOCIAL HISTORY: He does drink a glass of red wine daily. He does not smoke. Surrogate decision maker is his . REVIEW OF SYSTEMS: There is no documented fever. He denied any significant weight change. There is no double vision. No ear discharge. No rhinorrhea. No sore throat. No thyroid enlargement. Denied any chest pain. There is no orthopnea. No nocturnal dyspnea. No abdominal pain. No nausea, no vomiting. No dysuria, no frequency. No loss of consciousness. Review of 14 systems completed, all others negative. PHYSICAL EXAMINATION: Vital Signs: Blood pressure 116/78, pulse 82, respirations 16, O2 sat 95%, temperature 97.4. General: At this time, Mr. Diaz is an 84-year-old male patient, who does not appear to be in any acute distress. He is well nourished, well developed. HEENT: Head: Atraumatic, normocephalic. Eyes: EOMs intact. Sclerae anicteric and not pale. Neck was supple. Throat: Oral mucosa appears to be moist. No oropharyngeal erythema. Heart: Sounds S1, S2. He had a regular rate and rhythm. No murmurs, rubs, or gallops. Lungs: Clear to auscultation bilaterally. No wheezes, rales, rhonchi. Abdomen: Soft, flat, nontender. Bowel sounds are present. Extremities : Pulses 2+ throughout. Distal CSM checks are intact in the lower extremities and 5/5 strength distally to the left lower extremity. Strength testing was limited in the right lower extremity because this leg is the fractured leg and it is shortened and rotated. He had 5/5 strength in the upper extremities bilaterally. Neurologically: He is awake, he is alert, he is oriented x3. His speech was clear. His tongue was midline. He had no drift noted. I could not test webfocus developer in the lower extremities because anytime we had to move his lower extremity, he had significant pain. He did have quadrantanopia to the right lower visual field. He had some dysmetria to the right upper extremity as well. No dysmetria to the left lower extremity. No aphasia was noted and no difficulty with naming objects or repeating. He was awake and alert and oriented x3. His cranial nerves were otherwise intact. His skin was grossly intact. DIAGNOSTIC STUDIES/LAB DATA: WBC of 10.4, RBC of 4.40, hemoglobin of 14.1, hematocrit 42, platelet count 240. INR 1.14. PTT of 31.7. Sodium 138, potassium 3.6, chloride 106, bicarb 25, BUN 17, creatinine 0.79, glucose 105. Lactate 1.3. Calcium 9.3. Total bili 0.7, AST 23, ALT 16, alk phos 92. Troponin 0.02. Albumin 4.1. LDL was 109. Urine showed 1+ blood, presence of squamous epithelial cells. He had multiple imaging done in the ER starting out with a chest x-ray, which revealed no radiographic evidence for acute cardiopulmonary abnormality of this portable x-ray. Hip and pelvis x-ray showed fracture to the femoral neck with angulation deformity. Brain CT showed no acute intracranial abnormality, ASPECTS score 10, age- related atrophy, and mild chronic small vessel ischemic disease. Head CTA showed normal head CTA, age-related atrophy, and mild chronic small vessel ischemic disease. Again, it was a normal head CTA, no stenosis was noted , age-related and mild chronic small vessel ischemic disease. Impression on the neck CTA, normal neck CTA, left hypopharyngeal mucosal lesion concerning for developing neoplasm for which direct visualization is recommended. No associated abnormal lymph nodes. MRI of the brain showed small acute infarct posterior limb left internal capsule and periventricular white matter, age-related atrophy, and mild to moderate chronic small vessel ischemic disease. He had an EKG obtained today as well, which showed normal sinus rhythm, rate of 88 with a left bundle-branch block, reviewed to the previous EKG, it appears to be similar in nature. Old medical records were reviewed. ASSESSMENT AND PLAN: Again at this point, the patient on my initial examination was not having a focal deficit and then after being alerted by nursing staff, it was noted that he did have dysmetria and a visual field cut. 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 Stroke Neurology recommended from [facility] a baby aspirin and a bubble study. His CTA was negative for an LVO. They also recommended again telemetry, baby aspirin, no dual antiplatelet therapy and tPA was not recommended given the initial NIH stroke scale was 2. At this point, Orthopedics did evaluate the patient and ultimately because of a left hip fracture, the new infarct, Orthopedics felt that his surgical risk he was too high risk given the new acute infarct and now there is also this possibility. On the head CTA, there was a concern for a new left hypopharyngeal mucosal lesion. The etiology of the stroke does remain unclear. It possible he could have had a fat emboli from the fracture that may have crossed an unknown PFO, possibly atrial fibrillation or possibly he has hypercoagulable state from the possible neoplasm. So at this point, I did discuss the updates with Dr. Dawson , the new findings on the CTA and MRI and it was felt that the patient would be better served at tertiary care center given his complexity. I signed this out to Dr. Arciniega who at this point will arrange for transfer. TIME SPENT: On this consult was 60 minutes, greater than half the time was spent [id number] with the patient obtaining my history and physical, the other half time was spent going over the plan of care with the patient and implementing the plan of care. I did discuss the plan of care with my attending, Dr. Monreal, he is in agreement. RICARDO SANFORD, SANJANA [id number]/[facility] #: [id number] ALEX
== END 2019-12-14 03:03 | disposition short-term general hospital (02) ==
LOC: ED 15:59
DX: S72.001A Fracture of unspecified part of neck of right femur, initial encounter for closed fracture (principal); W19.XXXA Unspecified fall, initial encounter; Y92.9 Unspecified place or not applicable; G47.30 Sleep apnea, unspecified; Z85.46 Personal history of malignant neoplasm of prostate; R94.31 Abnormal electrocardiogram [ECG] [EKG]; Z87.442 Personal history of urinary calculi; Z79.899 Other long term (current) drug therapy
CPT/HCPCS: 36415; 70450; 70496; 70498; 70551; 71045; 80053; 80061; 81003; 81015; 82947; 83605; 84484; 85025; 85049; 85610; 85730; 86140; 93005; 96361; 96374; 96375; 96376; 99285; A9270-GY; J2270; J2405; Q9967

== ENCOUNTER 2021-08-07 20:03 | Inpatient (IN) ==
[2021-08-07 21:17] LABS: ABS Lymphocytes 0.6 10^3/ul (1.0-4.8); ABS Monocytes 0.4 10^3/ul (0-0.8); ABS Neutrophils 6.9 10^3/ul (1.5-7.7); Eosinophil % 0.4 %; Hematocrit 38 % (42-52); Hemoglobin 12.9 g/dL (14.0-18.0); Lymphocyte % 8.1 %; Mean Corpuscular HGB Conc 34 g/dL (31-36); Mean Corpuscular Hemoglobin 32 pg (27-31); Mean Corpuscular Volume 95 fL (80-94); Mean Platelet Volume 8.4 fL (7.4-10.4); Platelet Count 219 10^3/uL (150-450); Red Blood Count 4.04 10^6 /uL (4.18-5.48); Red Cell Distribution Width 13 % (10-15); White Blood Count 7.9 10^3/uL (3.5-10.8)
[2021-08-07 21:34] LABS: Albumin 3.7 g/dL (3.2-5.2); Albumin/Globulin Ratio 1.1 (1-3); Calcium 8.8 mg/dL (8.6-10.3); Globulin 3.3 g/dL (2-4); Magnesium 1.8 mg/dL (1.9-2.7); Potassium 4.3 mmol/L (3.5-5.0); Total Bilirubin 0.4 mg/dL (0.2-1.0)
[2021-08-07 21:35] LABS: Troponin I 0.01 ng/mL (<0.03)
[2021-08-07] MEDS ORDERED: NS 0.9% 1000 ml BAG 1,000 ML IV ONE (21:55)
[2021-08-07 22:13] LABS: TSH Ultra Thyroid Stim Horm 0.6 mcIU/mL (0.34-5.60)
[2021-08-08 02:20] LABS: Urine Appearance Clear; Urine Bilirubin Negative (Negative); Urine Blood Negative (Negative); Urine Color Yellow; Urine Glucose Negative (Negative); Urine Ketones Negative (Negative); Urine Nitrite Negative (Negative); Urine Protein Negative (Negative); Urine Specific Gravity 1.016 (1.002-1.030); Urine Urobilinogen Positive (Negative)
[2021-08-08] MEDS ORDERED: Magnesium Sulfate IV 1GM/100ML 1 GM/100 ML BAG IV ONE (05:28)
[2021-08-08] MEDS: NS 0.9% 1000 ml BAG 1,000 ML IV SCH ×2 (05:59→15:46)
[2021-08-08] MEDS ORDERED: Heparin 5000 UNITS/ML 1 mL VIAL SUBCUT SCH (06:00)
[2021-08-08 06:53] LABS: Rapid COVID-19 Molecular Undetected (Undetected)
[2021-08-08] MEDS: Enoxaparin 40 MG/0.4 ML SYR SUBCUT SCH (19:32)
[2021-08-09] MEDS: NS 0.9% 1000 ml BAG 1,000 ML IV SCH (05:44)
[2021-08-09 10:06] LABS: ABS Basophils 0.1 10^3/ul (0-0.2); ABS Eosinophils 0.4 10^3/ul (0-0.6); ABS Lymphocytes 1.1 10^3/ul (1.0-4.8); ABS Monocytes 0.5 10^3/ul (0-0.8); ABS Neutrophils 5.1 10^3/ul (1.5-7.7); Eosinophil % 5.3 %; Hematocrit 40 % (42-52); Hemoglobin 13.2 g/dL (14.0-18.0); Lymphocyte % 15.8 %; Mean Corpuscular HGB Conc 34 g/dL (31-36); Mean Corpuscular Hemoglobin 32 pg (27-31); Mean Corpuscular Volume 95 fL (80-94); Mean Platelet Volume 8.1 fL (7.4-10.4); Platelet Count 196 10^3/uL (150-450); Red Blood Count 4.16 10^6 /uL (4.18-5.48); Red Cell Distribution Width 13 % (10-15); White Blood Count 7.1 10^3/uL (3.5-10.8)
[2021-08-09 10:19] LABS: Calcium 8.5 mg/dL (8.6-10.3); Potassium 3.9 mmol/L (3.5-5.0)
[2021-08-09] MEDS ORDERED: Cyanocobalamin INJ 1,000 MCG/ML VIAL 1 ML VIAL IM ONE (16:00)
[2021-08-09] MEDS: Enoxaparin 40 MG/0.4 ML SYR SUBCUT SCH (21:59)
[2021-08-10] MEDS ORDERED: Magnesium Sulfate 2 gm BAG 2 GM/50 ML BAG IVPB ONE (16:11)
[2021-08-10] MEDS: Enoxaparin 40 MG/0.4 ML SYR SUBCUT SCH (20:02)
[2021-08-11 08:03] LABS: Albumin 3.4 g/dL (3.2-5.2); Albumin/Globulin Ratio 1.1 (1-3); Calcium 8.7 mg/dL (8.6-10.3); Direct Bilirubin 0.1 mg/dL (0.03-0.18); Globulin 3.1 g/dL (2-4); Indirect Bilirubin 0.5 mg/dL (0.3-1.0); Magnesium 2.1 mg/dL (1.9-2.7); Potassium 3.9 mmol/L (3.5-5.0); Total Bilirubin 0.6 mg/dL (0.2-1.0); Total Protein 6.5 g/dL (6.4-8.9)
[2021-08-11] MEDS: Enoxaparin 40 MG/0.4 ML SYR SUBCUT SCH (19:53)
[2021-08-12] MEDS: Enoxaparin 40 MG/0.4 ML SYR SUBCUT SCH (20:51)
[2021-08-13 13:40] VITALS: BP 125/59
== END 2021-08-13 15:40 | disposition swing bed (61) | DRG 101 ==
LOC: EDHOLD 20:03 → ED 20:03 → SUATTDRO 08-08 04:53 → EDHOLD 08-08 12:20 → MED 08-08 12:41 → MEDTELE 08-12 05:07
PROVIDERS: ADMIT Internal Medicine; ATTEND Internal Medicine

== ENCOUNTER 2021-08-27 14:24 | Inpatient (IN) ==
[2021-08-27 15:30] LABS: ABS Basophils 0.1 10^3/ul (0-0.2); ABS Eosinophils 0.3 10^3/ul (0-0.6); ABS Lymphocytes 1.4 10^3/ul (1.0-4.8); ABS Monocytes 0.7 10^3/ul (0-0.8); ABS Neutrophils 4.8 10^3/ul (1.5-7.7); Eosinophil % 3.7 %; Hematocrit 41 % (42-52); Hemoglobin 13.7 g/dL (14.0-18.0); Lymphocyte % 19.8 %; Mean Corpuscular HGB Conc 33 g/dL (31-36); Mean Corpuscular Hemoglobin 32 pg (27-31); Mean Corpuscular Volume 94 fL (80-94); Nucleated Red Blood Cells % 0.1; Platelet Count 215 10^3/uL (150-450); Red Blood Count 4.37 10^6 /uL (4.18-5.48); Red Cell Distribution Width 13 % (10-15); White Blood Count 7.3 10^3/uL (3.5-10.8)
[2021-08-27 15:31] LABS: Urine Appearance Cloudy; Urine Bilirubin Negative (Negative); Urine Blood Negative (Negative); Urine Color Amber; Urine Glucose Negative (Negative); Urine Ketones Trace (Negative); Urine Nitrite Negative (Negative); Urine Protein Negative (Negative); Urine Urobilinogen Negative (Negative)
[2021-08-27 15:51] LABS: ALT 17 U/L (7-52); AST 20 U/L (13-39); Albumin 3.8 g/dL (3.2-5.2); Albumin/Globulin Ratio 1.4 (1-3); Alkaline Phosphatase 82 U/L (35-149); Anion Gap 4 mmol/L (2-11); Blood Urea Nitrogen 16 mg/dL (6-24); CO2 Carbon Dioxide 27 mmol/L (22-32); Calcium 8.5 mg/dL (8.6-10.3); Chloride 110 mmol/L (101-111); Globulin 2.8 g/dL (2-4); Glucose 107 mg/dL (70-100); Potassium 3.7 mmol/L (3.5-5.0); Sodium 141 mmol/L (135-145); Total Protein 6.6 g/dL (6.4-8.9); eGFR CKD-EPI 87.9 (>60)
[2021-08-27 15:56] LABS: Urine Benzodiazepine Screen None Detected (None Detect); Urine Cannabinoids Screen None Detected (None Detect); Urine Opiates Screen None Detected (None Detect)
[2021-08-27] MEDS ORDERED: Al Hydrox/Mg Hydrox/Simet LIQ 30 ML UDC PO PRN (16:05)
[2021-08-27 16:33] LABS: Alcohol, S < 13 mg/dL (<13); Salicylate < 2.50 mg/dL (<30)
[2021-08-27 16:35] LABS: Acetaminophen < 15 mcg/mL
[2021-08-27 16:43] LABS: TSH Ultra Thyroid Stim Horm 0.79 mcIU/mL (0.34-5.60)
[2021-08-27] MEDS: Phenytoin 100 mg ER CAP PO SCH (23:00)
[2021-08-28 07:59] LABS: HDL Cholesterol 39.1 mg/dL
[2021-08-28] MEDS: Vitamin THERAPEUTIC TAB PO SCH (08:46)
[2021-08-28] MEDS: Phenytoin 100 mg ER CAP PO SCH ×2 (18:48→19:25)
[2021-08-29] MEDS: Vitamin THERAPEUTIC TAB PO SCH (10:33)
[2021-08-29] MEDS: Phenytoin 100 mg ER CAP PO SCH (20:57)
[2021-08-30] MEDS: Vitamin THERAPEUTIC TAB PO SCH (09:51)
[2021-08-30] MEDS: Phenytoin 100 mg ER CAP PO SCH ×2 (18:13→19:28)
[2021-08-31] MEDS: Vitamin THERAPEUTIC TAB PO SCH (09:43)
[2021-08-31] MEDS: Phenytoin 100 mg ER CAP PO SCH (20:23)
[2021-09-01 07:48] VITALS: BP 151/69
[2021-09-01] MEDS: Vitamin THERAPEUTIC TAB PO SCH (13:51)
== END 2021-09-01 13:40 | disposition home or self-care (01) | DRG 881 ==
LOC: ED 14:24 → EDHOLD 16:05 → BSU 19:40
PROVIDERS: ADMIT Psychiatry & Neurology Psychiatry; ATTEND Psychiatry & Neurology Psychiatry